=== PATIENT | female | born 1995 | race Two or more races ===

== ENCOUNTER 2020-03-30 10:45 | Emergency (ER) | payer BC, MEDICAID ==
--- NOTE | 2020-03-30 11:16 | EDM.PDOC ---
<Rambo Carlos - Last Filed: 03/30/20 11:15> ED HPI GENERAL MEDICAL PROBLEM - General Chief Complaint: Flank Pain Stated Complaint: ABNORMAL KIDNEYS & IN PAIN Time Seen by Provider: 03/30/20 11:15 Source of Information: Reports: Patient History Limitations: Reports: No Limitations - Related Data Allergies Allergy/AdvReac Type Severity Reaction Status Date / Time No Known Allergies Allergy Verified 03/30/20 10:58 Home Meds: Home Meds Cefdinir [Omnicef] 300 mg PO BID 10 Days #20 cap 03/30/20 [Rx] Past Medical History Gastrointestinal History: Reports: Hemorrhoids Genitourinary History: Reports: Pyelonephritis, UTI, Recurrent Social & Family History - Family History Family Medical History: Noncontributory - Tobacco Use Smoking Status *Q: Current Some Day Smoker Years of Tobacco use: 5 Packs/Tins Daily: 0.2 - Caffeine Use Caffeine Use: Reports: Coffee Course - Vital Signs Last Recorded V/S: Last Vital Signs Temp 97.8 F 03/30/20 10:55 Pulse 111 H 03/30/20 10:55 Resp 16 03/30/20 10:55 BP 124/79 03/30/20 10:55 Pulse Ox 97 03/30/20 10:55 - Orders/Labs/Meds Orders: Active Orders 24 hr Category Date Time Status Peripheral IV Care [RC] . DIRECTED Care 03/30/20 11:46 Ordered Abdomen Pelvis wo Cont [CT] Stat Exams 03/30/20 11:36 Ordered CULTURE URINE [RM] Routine Lab 03/30/20 13:14 Ordered Sodium Chloride 0.9% [Saline Flush] Med 03/30/20 11:46 Ordered 10 ml FLUSH ASDIRECTED PRN cefTRIAXone [Rocephin] 2 gm Med 03/30/20 13:08 Ordered Sodium Chloride 0.9% [Normal Saline] 100 ml IV ONETIME Peripheral IV Insertion Adult [OM.PC] Routine Oth 03/30/20 11:46 Ordered Medication Orders Ceftriaxone Sodium 2 gm/ (Sodium Chloride) 100 mls @ 200 mls/hr IV ONETIME ONE Stop: 03/30/20 13:37 Sodium Chloride (Saline Flush) 10 ml FLUSH ASDIRECTED PRN PRN Reason: Keep Vein Open Last Admin: 03/30/20 12:27 Dose: 10 ml Labs: Laboratory Tests 03/30/20 03/30/20 Range/Units 11:05 12:30 Urine Color Yellow (Yellow) Urine Appearance Clear (Clear) Urine pH 7.0 (5.0-8.0) Ur Specific [place] 1.015 (1.005-1.030) Urine Protein 1+ H (Negative) Urine Glucose (UA) Negative (Negative) Urine Ketones Negative (Negative) Urine Occult Blood 2+ H (Negative) Urine Nitrite Negative (Negative) Urine Bilirubin Negative (Negative) Urine Urobilinogen 0.2 (0.2-1.0) Ur Leukocyte Esterase 3+ H (Negative) Urine RBC 5-10 H (0-5) /hpf Urine WBC 40-50 H (0-5) /hpf Ur Epithelial Cells 0-5 (0-5) /hpf Urine Bacteria Few (FEW) /hpf Urine Mucus Few (FEW) /hpf Urine HCG, Qual Negative (NEGATIVE) Meds: Medications Generic Name Dose Route Start Last Admin Trade Name Freq PRN Reason Stop Dose Admin Ceftriaxone Sodium 2 gm/ 100 mls @ 200 mls/hr 03/30/20 13:08 Sodium Chloride IV 03/30/20 13:37 ONETIME ONE Sodium Chloride 10 ml 03/30/20 11:46 03/30/20 12:27 Saline Flush FLUSH 10 ml ASDIRECTED PRN Administration Keep Vein Open Discontinued Medications Generic Name Dose Route Start Last Admin Trade Name Freq PRN Reason Stop Dose Admin Hydromorphone HCl 0.5 mg 03/30/20 11:46 03/30/20 12:26 Dilaudid IVPUSH 03/30/20 11:47 0.5 mg ONETIME ONE Administration Sodium Chloride 1,000 mls @ 999 mls/hr 03/30/20 11:46 03/30/20 12:27 Normal Saline IV 03/30/20 12:46 999 mls/hr ONETIME ONE Administration Ondansetron HCl 4 mg 03/30/20 11:46 03/30/20 12:21 Zofran IVPUSH 03/30/20 11:47 4 mg ONETIME ONE Administration Departure - Departure Disposition: Home, Self-Care 01 Clinical Impression: Pyelonephritis - Discharge Information Prescriptions: Cefdinir [Omnicef] 300 mg PO BID 10 Days #20 cap Instructions: Pyelonephritis, Adult, [id number] Referrals: PCP,None [Primary Care Provider] - Forms: ED Department Discharge Additional Instructions: You have been evaluated in the ED for your urinary symptoms/flank pain. Your urinalysis was consistent with an acute urinary tract infection. Your urine was sent for culture, and you will be notified if you should need a change in your antibiotic. This may take up to 48 hours to result. You may take AZO for urinary pain relief. This is available over the counter, and can be attained at any retail store like [employer] or any pharmacy. Please be aware that this medication will make your urine turn orange. You have been given a prescription for Cefdinir (Omnicef), 300 mg 1 tablet 2 times a day for 10 days. This has been electronically sent to the [email or web address] located near [facility]. You should start taking these antibiotics starting tomorrow, Tuesday morning. You were also given 1 dose of IV Rocephin in the ER for initial management of the pyelonephritis. You may also take ibuprofen, 600-800 mg every 6 hours as needed for further pain relief. Do not exceed 3200 mg in a 24-hour time span. Please increase your oral fluid intake and try to stay adequately hydrated. Please return to the ED if your symptoms change or worsen. Sepsis Event Note - Evaluation Sepsis Screening Result: No Definite Risk - Focused Exam Vital Signs: Vital Signs Temp Pulse Resp BP Pulse Ox 03/30/20 10:55 97.8 F 111 H 16 124/79 97 Date Exam was Performed: 03/30/20 Time Exam was Performed: 11:15 - My Orders Last 24 Hours: My Active Orders 03/30/20 11:36 Abdomen Pelvis wo Cont [CT] Stat 03/30/20 11:46 Peripheral IV Care [RC] . DIRECTED Sodium Chloride 0.9% [Saline Flush] 10 ml FLUSH ASDIRECTED PRN Peripheral IV Insertion Adult [OM.PC] Routine 03/30/20 13:08 cefTRIAXone [Rocephin] 2 gm Sodium Chloride 0.9% [Normal Saline] 100 ml IV ONETIME 03/30/20 13:14 CULTURE URINE [RM] Routine - Assessment/Plan Last 24 Hours: My Active Orders 03/30/20 11:36 Abdomen Pelvis wo Cont [CT] Stat 03/30/20 11:46 Peripheral IV Care [RC] . DIRECTED Sodium Chloride 0.9% [Saline Flush] 10 ml FLUSH ASDIRECTED PRN Peripheral IV Insertion Adult [OM.PC] Routine 03/30/20 13:08 cefTRIAXone [Rocephin] 2 gm Sodium Chloride 0.9% [Normal Saline] 100 ml IV ONETIME 03/30/20 13:14 CULTURE URINE [RM] Routine <Elly Hilliard - Last Filed: 03/30/20 13:22> ED HPI GENERAL MEDICAL PROBLEM - General Source of Information: Reports: Patient, RN Notes Reviewed, Other (labs from Walk in clinic) History Limitations: Reports: No Limitations - History of Present Illness INITIAL COMMENTS - FREE TEXT/NARRATIVE: Patient is a 24-year-old female who presents to the ED for evaluation of left- sided flank pain. Patient notes this pain has been present for over the last 6 days. But the pain did worsen today she went to the walk-in clinic, they did some blood work and a urinalysis white blood cell count was a little bit elevated at 14.6 with 87% neutrophils. Patient's urine was had lots of white blood cells, but also a lot of squamous epithelial cells, suggestive of contamination. There also was a moderate amount of blood present in her urine. It looks like that urine was sent for culture. Patient states that she has had issues with her kidneys in the past, with a kidney infection. She states that the pain she is experiencing today does feel similar to the pain she had when she had a kidney infection. She denies any sort of fever/chills, or pain with urination. She notes that movement seems to kind to make this worse, she feels like the pain worsens with position changes, but laying flat seems to not aggravate the pain. She did take some ibuprofen shortly before coming to the ER and this did seem to help dull the pain. Patient denies any chance of . Past Medical History Gastrointestinal History: Reports: Hemorrhoids Genitourinary History: Reports: Pyelonephritis, UTI, Recurrent Social & Family History - Tobacco Use Smoking Status *Q: Current Some Day Smoker - Caffeine Use Caffeine Use: Reports: Coffee ED ROS GENERAL - Review of Systems Review Of Systems: Comprehensive ROS is negative, except as noted in HPI. ED EXAM,LOWER BACK PAIN/INJURY - Physical Exam Exam: See Below Exam Limited By: No Limitations General Appearance: Alert, WD/WN, No Apparent Distress Ears: Normal External Exam Nose: Normal Inspection Throat/Mouth: Normal Inspection, Normal Lips, Normal Teeth, Normal Gums, Normal Oropharynx, Normal Voice, No Airway Compromise Head: Atraumatic, Normocephalic Neck: Normal Inspection Respiratory/Chest: No Respiratory Distress, Lungs Clear, Normal Breath Sounds, No Accessory Muscle Use, Chest Non-Tender Cardiovascular: Normal Peripheral Pulses, Regular Rate, Rhythm, No Murmur GI/Abdominal: Normal Bowel Sounds, Soft, Non-Tender, No Distention, No Mass Back Exam: Normal Inspection, Full Range of Motion, CVA Tenderness (L) (mild). No: CVA Tenderness (R) Extremities: Normal Inspection, Normal Capillary Refill Neurological: Alert, Normal Mood/Affect, Normal Dorsiflexion, Normal Plantar Flexion, Oriented x 3 Psychiatric: Normal Affect, Normal Mood Skin Exam: Warm, Dry, Intact, Normal Color, No Rash Course - Orders/Labs/Meds Labs: Laboratory Tests 03/30/20 03/30/20 Range/Units 11:05 12:30 Urine Color Yellow (Yellow) Urine Appearance Clear (Clear) Urine pH 7.0 (5.0-8.0) Ur Specific [place] 1.015 (1.005-1.030) Urine Protein 1+ H (Negative) Urine Glucose (UA) Negative (Negative) Urine Ketones Negative (Negative) Urine Occult Blood 2+ H (Negative) Urine Nitrite Negative (Negative) Urine Bilirubin Negative (Negative) Urine Urobilinogen 0.2 (0.2-1.0) Ur Leukocyte Esterase 3+ H (Negative) Urine RBC 5-10 H (0-5) /hpf Urine WBC 40-50 H (0-5) /hpf Ur Epithelial Cells 0-5 (0-5) /hpf Urine Bacteria Few (FEW) /hpf Urine Mucus Few (FEW) /hpf Urine HCG, Qual Negative (NEGATIVE) Meds: Medications Generic Name Dose Route Start Last Admin Trade Name Freq PRN Reason Stop Dose Admin Ceftriaxone Sodium 2 gm/ 100 mls @ 200 mls/hr 03/30/20 13:08 Sodium Chloride IV 03/30/20 13:37 ONETIME ONE Sodium Chloride 10 ml 03/30/20 11:46 03/30/20 12:27 Saline Flush FLUSH 10 ml ASDIRECTED PRN Administration Keep Vein Open Discontinued Medications Generic Name Dose Route Start Last Admin Trade Name Freq PRN Reason Stop Dose Admin Hydromorphone HCl 0.5 mg 03/30/20 11:46 03/30/20 12:26 Dilaudid IVPUSH 03/30/20 11:47 0.5 mg ONETIME ONE Administration Sodium Chloride 1,000 mls @ 999 mls/hr 03/30/20 11:46 03/30/20 12:27 Normal Saline IV 03/30/20 12:46 999 mls/hr ONETIME ONE Administration Ondansetron HCl 4 mg 03/30/20 11:46 03/30/20 12:21 Zofran IVPUSH 03/30/20 11:47 4 mg ONETIME ONE Administration - Re-Assessments/Exams Free Text/Narrative Re-Assessment/Exam: 03/30/20 11:49 Patient presents to the ED for the evaluation of her left-sided flank pain. Since her urine was a suggested contaminated catch at the walk-in clinic, we will repeat a urine with hCG to rule out , and give the patient some fluids, 0.5 mg Dilaudid, 4 mg Zofran, and abdomen pelvis CT without contrast for evaluation of pyelonephritis versus kidney stone in nature. Patient's white blood cell count is suggestive of possible Pyelo with an 87% neutrophil count which would suggest a left shift. 03/30/20 13:09 Patient's urinalysis has come back, hCG is negative. Leukocyte Estrace, 3+. Differential is still pending. There is slight amount of blood as well in the urine. CT is done, and reviewed by Dr. aCrlos and myself. He noted some left ureter dilatation but no obvious perinephric stranding or any visible stone. Official radiology read is pending, but does appear that the patient is suffering from ureteritis versus pyelonephritis due to the patient's increased white count with a left shift done at [facility]. We will give her 1 dose of Rocephin in the ER here today, and she can fill her Omnicef at a pharmacy of choice tomorrow and take as prescribed. Will be directed to take ibuprofen every 6 hours for further pain relief. 03/30/20 13:15 V rad report has come back, and demonstrates mild left perinephric and periureteral stranding with suggestion of your urothelial thickening no stones identified but findings may represent a sending urinary tract infection although recently passed stone could have similar appearance. Again with the findings in combination with the elevated white count suspect pyelonephritis or a sending UTI. Treatment course will be as above. Patient will be discharged after the Rocephin has been given. Departure - Departure Time of Disposition: 13:11 Condition: Good - Discharge Information *PRESCRIPTION DRUG MONITORING PROGRAM REVIEWED*: No *COPY OF PRESCRIPTION DRUG MONITORING REPORT IN PATIENT FRANCK: No Sepsis Event Note - Focused Exam Date Exam was Performed: 03/30/20 Time Exam was Performed: 13:21
[2020-03-30] MEDS ORDERED: HYDROmorphone 0.5 MG/0.5 ML Syringe IVPUSH ONE ×2 (11:46→13:39)
[2020-03-30] MEDS ORDERED: Sodium Chloride 0.9% 1,000 ML IV ONE (11:46)
[2020-03-30] MEDS ORDERED: Sodium Chloride 0.9% 10 ML Syringe FLUSH PRN (11:46)
[2020-03-30] MEDS ORDERED: Ondansetron 4 MG/2 ML SDV IVPUSH ONE (11:46)
[2020-03-30] MEDS ORDERED: cefTRIAXone 2 GM in Sodium Chloride 0.9% 100 ML IV ONE (13:08)
[2020-03-30] MEDS ORDERED: Ketorolac 30 MG/ML SDV IVPUSH ONE (13:40)
--- NOTE | 2020-03-31 11:46 | CT ---
CT abdomen and pelvis Technique: Multiple axial sections were obtained from above the dome of the diaphragm inferiorly through the pubic symphysis. Intravenous and oral contrast not utilized. Study has been performed as a ureteral stone protocol. Findings: Left ureter is mildly prominent in size with mild surrounding inflammatory change. No abnormal calcifications are seen. Please correlate if patient's symptoms have improved representing a recently passed ureteral stone. If findings are persistent, findings could represent ureteral stasis from infection. No additional abnormalities are seen within the kidneys. Visualized lung bases show nothing acute. Noncontrast appearance of the liver shows no focal abnormality. Spleen appears normal. Adrenal glands show no nodule. Gallbladder contains no calcified gallstones. Pancreas is within normal limits. Aorta shows no aneurysm. No retroperitoneal adenopathy or mesenteric abnormalities are seen. Appendix is seen which is normal in size. No pelvic mass or adenopathy is appreciated. Bone window settings were reviewed which show no acute osseous finding. Impression: 1. Left ureteral findings, please see above for further discussion. 2. No other acute findings are seen on noncontrast CT study of the abdomen and pelvis. Diagnostic code #3 This report was dictated in MDT I agree with preliminary report from [facility], finalized on 03/30/20, 2:30 PM Central Daylight Time
== END 2020-03-30 14:00 | disposition home or self-care (01) ==
LOC: JD.ED 10:45
DX: N12 Tubulo-interstitial nephritis, not specified as acute or chronic (principal); F17.200 Nicotine dependence, unspecified, uncomplicated; F17.210 Nicotine dependence, cigarettes, uncomplicated
CPT/HCPCS: 74176; 81001; 81025; 87086; 87186; 96361; 96365; 96375; 96376; 99284; J0696; J1170; J1885; J2405; J7030; J7050; 99283

== ENCOUNTER 2021-04-10 16:13 | Emergency (ER) | payer MEDICAID ==
[2021-04-10] MEDS ORDERED: Lidocaine 1% with EPINEPHrine 1:100,000 10 ML MDV INJECT ONE (16:41)
--- NOTE | 2021-04-10 16:45 | EDM.PDOC ---
ED HPI GENERAL MEDICAL PROBLEM - General Chief Complaint: Laceration Stated Complaint: RT THUMB LAC Time Seen by Provider: 04/10/21 16:33 Source of Information: Reports: Patient, RN Notes Reviewed History Limitations: Reports: No Limitations - History of Present Illness INITIAL COMMENTS - FREE TEXT/NARRATIVE: Patient is a 25-year-old female who comes into the ER for a right thumb laceration. Patient states that 1/2-hour prior to arrival to the ER, she was working with some glass, when she ended up lacerating the radial aspect of the patient's right thumb. This is near the DIP joint. She denies any numbness or tingling distal to the injury, she has no decrease in range of motion, no tendon injury is apparent. She did apply a Band-Aid at the time of the laceration, ho wever she did note she has blood through that. She was not sure if it was deep enough to need sutures or not, but she comes to the ER for evaluation. Patient denies any other sick-like symptoms, fever/chills, cough/shortness of breath, nausea/vomiting/diarrhea. Patient states that she is up to date on immunizations. - Related Data Allergies Allergy/AdvReac Type Severity Reaction Status Date / Time No Known Allergies Allergy Verified 04/10/21 16:36 Past Medical History - Past Health History Medical/Surgical History: Denies Medical/Surgical History Gastrointestinal History: Reports: Hemorrhoids Genitourinary History: Reports: Pyelonephritis, UTI, Recurrent - Infectious Disease History Infectious Disease History: Reports: Novel Coronavirus Other Infectious Disease History: January 2020 Social & Family History - Family History Family Medical History: No Pertinent Family History - Tobacco Use Tobacco Use Status *Q: Current Some Day Tobacco User Years of Tobacco use: 10 Packs/Tins Daily: 0.1 - Caffeine Use Caffeine Use: Reports: Coffee - Recreational Drug Use Recreational Drug Use: No ED ROS GENERAL - Review of Systems Review Of Systems: Comprehensive ROS is negative, except as noted in HPI. ED EXAM, SKIN/RASH Exam: See Below Exam Limited By: No Limitations General Appearance: Alert, WD/WN, No Apparent Distress Respiratory/Chest: No Respiratory Distress, Lungs Clear, Normal Breath Sounds, No Accessory Muscle Use, Chest Non-Tender Cardiovascular: Normal Peripheral Pulses, Regular Rate, Rhythm, No Edema Peripheral Pulses: 2+: Radial (L), Radial (R) Extremities: Normal Range of Motion, Normal Capillary Refill Neurological: Alert, Oriented, Normal Cognition, No Motor/Sensory Deficits Psychiatric: Normal Affect, Normal Mood Skin: Warm, Dry, Normal Color, No Rash, Wound/Incision (1.5 curvilinear laceration to the radial aspect of the patient's right thumb, involving the DIP joint.) ED SKIN PROCEDURES - Laceration/Wound Repair Right Anterior Distal Digit - 1st (Thumb) Appearance: Superficial, Clean Distal NVT: Neuro & Vascular Intact, No Tendon Injury Anesthetic Type: Local Local Anesthesia - Lidocaine (Xylocaine): 1% with EPI Local Anesthetic Volume: 2cc Skin Prep: Chlorhexidine (Hibiciens), Saline Exploration/Debridement/Repair: Wound Explored, In a Bloodless Field, Explored to Base, No Foreign Material Found Closed with: Sutures Lac/Wound length In cm: 1.5 Suture Size: 4-0 # of Sutures: 3 Suture Type: Prolene, Interrupted, Simple Sterile Dressing Applied: Nurse Tetanus Status Addressed: Yes Complications: No Course - Vital Signs Last Recorded V/S: Last Vital Signs Temp 97.4 F 04/10/21 16:33 Pulse 89 04/10/21 16:33 Resp 18 04/10/21 16:33 BP 123/80 04/10/21 16:33 Pulse Ox 95 04/10/21 16:33 - Orders/Labs/Meds Meds: Medications Discontinued Medications Generic Name Dose Route Start Last Admin Trade Name Freq PRN Reason Stop Dose Admin Lidocaine/Epinephrine 10 ml 04/10/21 16:41 04/10/21 16:47 Lidocaine 1% With Epinephrine 1:100,000 10 Ml Mdv INJECT 04/10/21 16:42 10 ml ONETIME ONE Administration Departure - Departure Time of Disposition: 16:44 Disposition: Home, Self-Care 01 Condition: Good Clinical Impression: Thumb laceration Qualifiers: Encounter type: initial encounter Damage to nail status: without damage Foreign body presence: without foreign body Laterality: right Qualified Code(s): S61.011A - Laceration without foreign body of right thumb without damage to nail, initial encounter - Discharge Information *PRESCRIPTION DRUG MONITORING PROGRAM REVIEWED*: No *COPY OF PRESCRIPTION DRUG MONITORING REPORT IN PATIENT FRANCK: No Instructions: Sutures, [place], or Adhesive Wound Closure, [id number] Referrals: PCP,None [Primary Care Provider] - Forms: ED Department Discharge Additional Instructions: You have been evaluated in the ED for your laceration. Sutures will need to stay in for 10-14 days. You may return to the ED or any clinic for removal. Please keep this area clean and dry, you may cleanse with regular soap and water. No vigorous scrubbing. Please try to avoid submerging the affected area in water for prolonged periods of time until the sutures are removed. Watch out for signs of infection like increased redness, swelling, pain at the laceration site, or if you should develop any fevers or chills. Please return to ED if your symptoms change or worsen. Sepsis Event Note (ED) - Evaluation Sepsis Screening Result: No Definite Risk - Focused Exam Vital Signs: Vital Signs Temp Pulse Resp BP Pulse Ox 04/10/21 16:33 97.4 F 89 18 123/80 95
== END 2021-04-10 17:14 | disposition home or self-care (01) ==
LOC: JD.ED 16:13
DX: S61.011A Laceration without foreign body of right thumb without damage to nail, initial encounter (principal); Z72.0 Tobacco use; W25.XXXA Contact with sharp glass, initial encounter
CPT/HCPCS: 12001; 99282; 99282-25

== ENCOUNTER 2022-11-15 08:51 | Emergency (ER) | payer BC, MEDICAID ==
[2022-11-15] MEDS ORDERED: Dextrose 5%-0.9% NaCl 1,000 ML IV SCH (09:15)
[2022-11-15 09:43] LABS: CORONAVIRUS COVID-19 NAA NEGATIVE (NEGATIVE)
[2022-11-15 09:55] LABS: ESTIMATED GFR 121 mL/min (>60)
== END 2022-11-15 10:36 | disposition home or self-care (01) ==
LOC: JD.ED 08:51
DX: J10.1 Influenza due to other identified influenza virus with other respiratory manifestations (principal); Z20.822 Contact with and (suspected) exposure to COVID-19
CPT/HCPCS: 0241U; 36415; 71045; 80053; 81001; 85025; 86140; 87086; 93005; 96360; 99285; J7042

== ENCOUNTER 2023-03-06 15:09 | Emergency (ER) | payer BC | END 2023-03-06 17:50 | disposition home or self-care (01) | LOC: JD.ED 15:09 | DX: O20.0 Threatened abortion (principal); F17.210 Nicotine dependence, cigarettes, uncomplicated; Z86.16 Personal history of COVID-19; Z3A.01 Less than 8 weeks gestation of pregnancy | CPT/HCPCS: 36415; 76817; 76817-26; 81001; 84702; 85025; 86900; 86901; 99283; 99284 ==

== ENCOUNTER 2024-03-07 14:47 | Emergency (ER) | payer BC ==
[2024-03-07 15:35] LABS: BASOPHILS ABSOLUTE AUTO 0.1 K/mm3 (0.0-0.2); BASOPHILS PERCENT AUTO 0.4 % (0.0-1.0); EOSINOPHILS PERCENT AUTO 0.2 % (0.0-6.0); HEMATOCRIT 39.5 % (37.0-47.0); HEMOGLOBIN 13.6 gm/dl (12.0-16.0); IMMATURE GRAN ABSOLUTE AUTO 0.04 K/mm3 (0.00-0.05); IMMATURE GRAN PERCENT AUTO 0.3 % (0.0-0.4); LYMPHOCYTES ABSOLUTE AUTO 1.6 K/mm3 (1.0-4.8); LYMPHOCYTES PERCENT AUTO 10.9 % (24.0-44.0); MEAN CORPUSCULAR HEMOGLOBIN 30.2 pg (28.0-32.0); MEAN CORPUSCULAR HGB CONC 34.4 g/dl (32.0-36.0); MEAN CORPUSCULAR VOLUME 87.8 fl (83.0-99.0); MEAN PLATELET VOLUME 10.3 fl (9.4-12.3); MONOCYTES ABSOLUTE AUTO 0.5 K/mm3 (0.0-0.8); MONOCYTES PERCENT AUTO 3.2 % (0.0-8.0); NEUTROPHILS ABSOLUTE AUTO 12.4 K/mm3 (1.8-7.7); PLATELET COUNT,PLT 242 K/mm3 (150-400); WHITE BLOOD CELL COUNT,WBC 14.57 K/mm3 (3.9-11.3)
[2024-03-07] MEDS: Acetaminophen 325 MG Tab PO ONE (15:58)
[2024-03-07] MEDS: Sodium Chloride 0.9% 1,000 ML IV ONE (15:59)
[2024-03-07 16:08] LABS: A/G RATIO 1.1 (1-2); ANION GAP 17.7 (5-15); BILIRUBIN TOTAL 0.4 mg/dL (0.2-1.0); CALCIUM 9.4 mg/dL (8.5-10.1); CREATININE 0.8 mg/dL (0.55-1.02); EST CRCL DRUG DOSING (CG) 82.06 mL/min; PROTEIN TOTAL,TP 7.5 g/dl (6.4-8.2)
[2024-03-07 16:17] LABS: POTASSIUM,K 3.7 mEq/L (3.5-5.1)
[2024-03-07 16:47] LABS: APPEARANCE,URINE CLEAR (Clear); BILIRUBIN,URINE NEGATIVE (Negative); COLOR,URINE LIGHT YELLOW (Yellow); GLUCOSE,URINE NEGATIVE (Negative); KETONES,URINE NEGATIVE (Negative); LEUKOCYTE ESTERASE,URINE NEGATIVE (Negative); NITRITE,URINE NEGATIVE (Negative); OCCULT BLOOD,URINE 2+ (Negative); PROTEIN,URINE NEGATIVE (Negative); UROBILINOGEN,URINE 0.2 (0.2-1.0)
[2024-03-07 17:33] LABS: BACTERIA,URINE FEW /hpf (FEW); EPITHELIAL CELLS,URINE 0-5 /hpf (0-5); MUCUS,URINE FEW /hpf (FEW); WBC,URINE 0-5 /hpf (0-5)
== END 2024-03-07 18:45 | disposition home or self-care (01) ==
LOC: JD.ED 14:47
DX: O34.80 Maternal care for other abnormalities of pelvic organs, unspecified trimester (principal); N83.201 Unspecified ovarian cyst, right side; Z3A.00 Weeks of gestation of pregnancy not specified; Z86.16 Personal history of COVID-19
CPT/HCPCS: 36415; 76817; 80053; 81001; 84702; 85025; 86850; 86900; 86901; 96360; 99284; A9270; J7030; 99283

== ENCOUNTER 2024-03-09 10:36 | Day surgery (SDC) | payer BC ==
[2024-03-09] MEDS: Lactated Ringers 1,000 ML IV SCH (10:55)
[2024-03-09] MEDS ORDERED: Sodium Chloride 0.9% 10 ML Syringe FLUSH PRN (11:04)
[2024-03-09] MEDS ORDERED: Lidocaine 1% 5 ML VIAL ONE (11:11)
[2024-03-09] MEDS ORDERED: Rocuronium 50 MG/5 ML Vial ONE (11:11)
[2024-03-09] MEDS ORDERED: fentaNYL 250 MCG/5 ML SDV ONE (11:12)
[2024-03-09] MEDS ORDERED: HYDROmorphone 0.5 MG/0.5 ML Syringe ONE (11:12)
[2024-03-09] MEDS ORDERED: Propofol 200 MG/20 ML SDV ONE (11:12)
[2024-03-09] MEDS ORDERED: Metoclopramide 10 MG/2 ML SDV ONE (11:14)
[2024-03-09] MEDS ORDERED: Ketorolac 30 MG/ML SDV ONE (11:28)
[2024-03-09] MEDS: Lidocaine 1% 30 ML SDV ONE (11:40)
[2024-03-09] MEDS ORDERED: ePHEDrine 50 MG/ML SDV ONE (11:42)
[2024-03-09] MEDS ORDERED: Neostigmine Methylsulfate 10 MG/10 ML MDV ONE (12:15)
[2024-03-09] MEDS ORDERED: Lactated Ringers 1,000 ML IV ONE (12:30)
[2024-03-09] MEDS: oxyCODONE 5 MG Tab PO PRN (13:16)
[2024-03-09] MEDS ORDERED: Sodium Chloride 0.9% 10 ML Syringe FLUSH SCH (21:00)
== END 2024-03-09 13:45 | disposition home or self-care (01) ==
LOC: JD.SDS 10:36
PROVIDERS: ATTEND Obstetrics & Gynecology
DX: O00.102 Left tubal pregnancy without intrauterine pregnancy (principal); O02.9 Abnormal product of conception, unspecified; G89.18 Other acute postprocedural pain; Z79.899 Other long term (current) drug therapy
CPT/HCPCS: 00840; 99140; A9270-GY; J1170; J1596; J1885; J2704; J2710; J2765; J3010; J3490; J7120

== ENCOUNTER 2025-05-07 08:51 | Inpatient (IN) | payer BC ==
[2025-05-07] MEDS ORDERED: Acetaminophen 325 MG Tab PO PRN (12:20)
[2025-05-07] MEDS ORDERED: Sodium Chloride 0.9% 10 ML Syringe FLUSH PRN (12:20)
[2025-05-07] MEDS ORDERED: Lidocaine 1% 50 ML MDV INJECT PRN (12:20)
[2025-05-07] MEDS ORDERED: Nalbuphine 10 MG/1 ML Vial IVPUSH PRN (12:20)
[2025-05-07] MEDS ORDERED: Oxytocin/0.9 % Sodium Chloride 30 UNIT/500 ML BAG IV SCH (12:30)
[2025-05-07 12:44] LABS: BASOPHILS PERCENT AUTO 0.1 % (0.0-1.0); EOSINOPHILS PERCENT AUTO 0.1 % (0.0-6.0); HEMATOCRIT 41.3 % (37.0-47.0); HEMOGLOBIN 13.8 gm/dl (12.0-16.0); IMMATURE GRAN ABSOLUTE AUTO 0.05 K/mm3 (0.00-0.05); IMMATURE GRAN PERCENT AUTO 0.3 % (0.0-0.4); LYMPHOCYTES ABSOLUTE AUTO 1.6 K/mm3 (1.0-4.8); LYMPHOCYTES PERCENT AUTO 10.5 % (24.0-44.0); MEAN CORPUSCULAR HGB CONC 33.4 g/dl (32.0-36.0); MEAN PLATELET VOLUME 11.4 fl (9.4-12.3); MONOCYTES ABSOLUTE AUTO 0.6 K/mm3 (0.0-0.8); MONOCYTES PERCENT AUTO 3.8 % (0.0-8.0); NEUTROPHILS ABSOLUTE AUTO 13.1 K/mm3 (1.8-7.7); NEUTROPHILS PERCENT AUTO 85.2 % (41.0-71.0); PLATELET COUNT,PLT 285 K/mm3 (150-400); RED BLOOD CELL COUNT 4.93 M/mm3 (4.10-5.30); WHITE BLOOD CELL COUNT,WBC 15.39 K/mm3 (3.9-11.3)
[2025-05-07 12:57] LABS: MEAN CORPUSCULAR VOLUME 83.8 fl (83.0-99.0)
[2025-05-07] MEDS ORDERED: Penicillin G Potassium 5 MILLUNITS in Sodium Chloride 0.9% 100 ML IV SCH (13:00)
[2025-05-07] MEDS: Penicillin G Potassium 5 MILLUNITS in Sodium Chloride 0.9% 100 ML IV SCH (14:44)
[2025-05-07] MEDS: Ondansetron 4 MG/2 ML SDV IVPUSH PRN (14:53)
[2025-05-07] MEDS: Lactated Ringers 1,000 ML IV SCH (15:20)
[2025-05-07] MEDS ORDERED: ePHEDrine 50 MG/ML SDV IVPUSH PRN (16:11)
[2025-05-07] MEDS ORDERED: diphenhydrAMINE 50 MG/ML SDV IVPUSH PRN (16:11)
[2025-05-07] MEDS: Bupivacaine/fentaNYL/NS 100 ML Bag EPIDUR PRN (16:31)
[2025-05-07] MEDS ORDERED: Penicillin G Potassium 2.5 MILLUNITS in Sodium Chloride 0.9% 100 ML IV SCH (17:00)
[2025-05-07] MEDS: Penicillin G Potassium 2.5 MILLUNITS in Sodium Chloride 0.9% 100 ML IV SCH (18:48)
[2025-05-07] MEDS: Sodium Chloride 0.9% 10 ML Syringe FLUSH SCH (21:50)
[2025-05-08] MEDS: Oxytocin/0.9 % Sodium Chloride 30 UNIT/500 ML BAG IV SCH (03:57)
[2025-05-08] MEDS: Docusate Sodium 100 MG Cap PO PRN (10:05)
[2025-05-08] MEDS: Ibuprofen 800 MG Tab PO SCH ×2 (10:05→22:24)
[2025-05-08] MEDS: Benzocaine/Menthol 20%-0.5% Spray 78 GM Cannister TOP PRN (10:11)
[2025-05-08] MEDS: Witch Hazel Medicated Pads 40/Jar TOP PRN (10:11)
== END 2025-05-09 15:40 | disposition home or self-care (01) | DRG 560 ==
LOC: JD.OBCHECK 08:51 → JD.OB 08:51 → JD.OBCHECK 12:20 → JD.OB 12:20 → OBSVTOIN 05-08 06:48 → JD.OB 05-08 06:49
PROVIDERS: ADMIT Obstetrics & Gynecology; ATTEND Obstetrics & Gynecology
PROC: 10E0XZZ Delivery of Products of Conception, External Approach (ICD-10-PCS; principal; 2025-05-08)
PROC: 0HQ9XZZ Repair Perineum Skin, External Approach (ICD-10-PCS; principal; 2025-05-08)
PROC: 10907ZC Drainage of Amniotic Fluid, Therapeutic from Products of Conception, Via Natural or Artificial Opening (ICD-10-PCS; principal; 2025-05-08)
PROC: 3E0R3BZ Introduction of Anesthetic Agent into Spinal Canal, Percutaneous Approach (ICD-10-PCS; principal; 2025-05-08)
DX: O99.824 Streptococcus B carrier state complicating childbirth (principal); O99.214 Obesity complicating childbirth; Z3A.39 39 weeks gestation of pregnancy; Z37.0 Single live birth; Z86.16 Personal history of COVID-19; Z79.82 Long term (current) use of aspirin; Z79.899 Other long term (current) drug therapy; O70.0 First degree perineal laceration during delivery; O69.1XX0 Labor and delivery complicated by cord around neck, with compression, not applicable or unspecified
CPT/HCPCS: 36415; 51702; 59025; 59409; 84112; 85025; 86592; 86850; 86900; 86901; A9270-GY; J2405; J2540; J3490; J7120; J7999